=== PATIENT | female | born 2000 | race Caucasian/White ===

== ENCOUNTER 2021-04-19 21:57 | Emergency (ER) | payer SELFPAY ==
[~2021-04-19] VITALS: Ht 170.2 cm; Wt 120.0 kg
--- NOTE | 2021-04-19 22:45 | PHYS DOC ---
General Adult HPI: HPI: " Fuck off..".. " Let... me .. sleep... " Patient is a age year old 21 female celebrating her birthday with intake of 750 ml of [place] and hydrocodone tablets. Patient developed altered mental status and had repeated episodes of vomiting. Patient continued to vomit on arrival here. Vomit has a strong smell of alcohol. Patient minimally responsive will awaken with noxious stimuli and verbalized she wishes to be left alone. Patient, he falls back to sleep when not receiving noxious stimuli.. Patient continued to vomit several times while and emergency room. Patient initially for historian. But later returned patient had no recent travel or. No specific ill contacts. No history of immunosuppression. Note history of polysubstance abuse and alcohol use. Review of Systems: Review of Systems: Constitutional: Denies fever or chills Eyes: Denies change in visual acuity HENT: Denies nasal congestion or sore throat Respiratory: Denies cough or shortness of breath Cardiovascular: Denies chest pain or edema GI: Complains of nausea, vomiting,. Denies bloody stools or diarrhea : Denies dysuria Musculoskeletal: Denies back pain or joint pain Integument: Denies rash Neurologic: Denies headache, focal weakness or sensory changes Endocrine: Denies polyuria or polydipsia Lymphatic: Denies swollen glands Psychiatric: Denies depression or anxiety Family History: Family History: Noncontributory to presentation Current Medications: Current Meds: See nursing for home meds Allergies: Allergies: No known drug allergies Physical Exam: PE: Constitutional: no acute distress, extremely intoxicated in appearance. Does have a strong smell of alcoholic beverage. Patient actively vomiting. HENT: Normocephalic, atraumatic, bilateral external ears normal, oropharynx moist, no oral exudates, nose normal. [] Lip rings. Eyes: PERRLA, EOMI, conjunctiva injected. , no discharge. Glasses Neck: Normal range of motion, no tenderness, supple, no stridor. [] Cardiovascular: Tachycardia heart rate regular rhythm, no murmur [] PMI to the left Lungs & Thorax: Bilateral breath sounds equal at apex with scattered wheezes on auscultation. Some rhonchi and crackles right upper lung. Abdomen: Bowel sounds increased, soft, some epigastric some epigastric tenderness, no masses, no pulsatile masses. Morbidly obese. Skin: Warm, dry, no erythema, no rash. [] Back: No tenderness, no CVA tenderness. [] Extremities: No tenderness, no cyanosis, no clubbing, ROM intact, no edema. , No cording appreciated. No psoas. Neurologic: Alert and oriented X 3, moves all extremities with noxious stimuli. Patient eventually moves all extremities volitionally as she gradually states sobered up in the trauma care area. . Has distal sensory function, no focal deficits noted. [] Psychologic: Affect anxious,, judgement impaired, mood depressed [] Current Patient Data: Labs: Laboratory Tests Test 04/19/21 22:28 POC Urine HCG, Qualitative hcg negative (Negative) EKG: EKG: My interpretation EKG shows a sinus rhythm at 71 bpm. No acute morphology. [] Radiology/Procedures: Radiology/Procedures: [address] [address] IMAGING REPORT Signed PATIENT: JULIO C CLARKE ACCOUNT: [id number] : 2000 LOCATION: ER AGE: 21 SEX: F EXAM STATUS: REG ER ORD. PHYSICIAN: LEATHA JONES MD REASON: Eval. paratracheal , dyspnea, OMNI 350, 100ml PROCEDURE: CT ANGIOGRAPHY CHEST CT angiography chest with contrast PQRS statement: CT scans at this facility use dose reduction including either automated exposure control, iterative reconstructions, and /or weight based radiation dosing via mA and kV modification when appropriate to reduce radiation dose to as low as reasonably achievable. Contrast: 100 mL Isovue-370 intravenous contrast with 3-D MIP reconstructions of the arteries acquired. HISTORY: Abnormal chest x-ray with enlarged right paratracheal mediastinum, dyspnea. FINDINGS: Heart size upper limits of normal. Aorta and esophagus are unremarkable. Ascending aorta diameter 2.9 cm. No adenopathy in the chest. No pulmonary artery emboli. No mass or adenopathy or aneurysm of the mediastinum, the prominence of the right paratracheal mediastinum on prior chest x-ray likely corresponds to tortuosity of the vasculature at this location. Trachea and bronchi are unremarkable. 4 mm solid nodule left lower lobe image 85. Mild discoid atelectasis at the lung bases dependently. No pleural effusions. Bones are unremarkable. IMPRESSION: 1. No acute process. No pulmonary artery emboli. No mass or adenopathy in the chest. See above. 2. 4 mm solid nodule of the left lower lobe. Per Fleischner guidelines if the patient has risk factors for malignancy optional CT follow-up in 12 months could be considered, otherwise no follow-up is necessary. Electronically signed by: Chelsea Charlton MD (04/20/2021 4:05 AM) [facility] DICTATED AND SIGNED BY: CHELSEA CHARLTON MD DATE: 04/20/21 1710 CC: LEATHA JONES MD; PCP,NO ~MTH0 0 [][place] [address] IMAGING REPORT Signed PATIENT: JULIO C CLARKE ACCOUNT: [id number] : 2000 LOCATION: ER AGE: 21 SEX: F EXAM STATUS: REG ER ORD. PHYSICIAN: LEATHA JONES MD REASON: od, eval aspiration PROCEDURE: PORTABLE CHEST 1V AP chest x-ray HISTORY: Aspiration, drug overdose. FINDINGS: Mild cardiomegaly. The right paratracheal stripe is somewhat promine nt. Mediastinal width is normal measuring 1 cm. No pneumothorax, pulmonary opacities or pleural effusions. Bones are unremarkable. IMPRESSION: No pulmonary opacities. Mild cardiomegaly. Prominence of the right paratracheal mediastinum may be due to lipomatosis or vascular tortuosity, although a mass or aneurysm is not excluded. This could be further assessed with CT chest imaging. Electronically signed by: Chelsea Charlton MD (04/19/2021 11:40 PM) [facility] DICTATED AND SIGNED BY: CHELSEA CHARLTON MD DATE: 04/19/21 0822 CC: LEATHA JONES MD; PCP,NO ~MTH0 0 Heart Score: C/O Chest Pain: N/A Risk Factors: Risk Factors: DM, Current or recent (<one month) smoker, HTN, HLP, family history of CAD, obesity. Risk Scores: Score 0 - 3: 2.5% MACE over next 6 weeks - Discharge Home Score 4 - 6: 20.3% MACE over next 6 weeks - Admit for Clinical Observation Score 7 - 10: 72.7% MACE over next 6 weeks - Early Invasive Strategies Course & Med Decision Making: Course & Med Decision Making Pertinent Labs and Imaging studies reviewed. (See chart for details) Pt. now alert and crying to go home. 0430 hrs. Discussed findings of ED evaluation. Caution pt. on further drug an alcohol use. Pt. currently decline referral to drug rehab . program. Impression: 1. Poly substance abuse - ( To night + for ETOH, Narcotics and Marijuana) 2. Tobacco Use 3. ETOH = 344 4. Nausea and Vomiting 5. Pulmonary Nodule- Lt. lower lobe ( to get follow up CT in 12 months. ) 6. Morbid Obesity 7. Mild Leukocytosis 14 8. Mild Elevation Mag. 2.5 9. HTN [] Dragon Disclaimer: Dragon Disclaimer: This electronic medical record was generated, in whole or in part, using a voice recognition dictation system. Departure Departure: Referrals: PCP,NO (PCP) Dragon Disclaimer This chart was dictated in whole or in part using Voice Recognition software in a busy, high-work load, and often noisy Emergency Department environment. It may contain unintended and wholly unrecognized errors or omissions. Dragon Disclaimer This chart was dictated in whole or in part using Voice Recognition software in a busy, high-work load, and often noisy Emergency Department environment. It may contain unintended and wholly unrecognized errors or omissions. LEATHA JONES MD Apr 19, 2021 22:45
[2021-04-19] MEDS ORDERED: IV RINGERS SOLUTION,LACTATED 1,000 ML IV ONE (23:00)
--- NOTE | 2021-04-19 23:15 | EKG ---
[address] [address] Test Date: 2021-04-19 Test Time: 23:02:06 Pat Name: JULIO C CLARKE Department: Room: Gender: F Linen Room Attendant: CHARLES : 2000 Requested By: LEATHA JONES Order Number: [id number] Reading MD: Measurements Intervals [place] Rate: 71 P: 0 ND: 186 QRS: 67 QRSD: 90 T: 28 QT: 398 QTc: 437 Interpretive Statements SINUS RHYTHM OTHERWISE NORMAL ECG RI6.02 No previous ECG available for comparison
[2021-04-19 23:25] LABS: BASO # 0.1 x10^3/uL (0.0-0.2); BASO % 1 % (0-3); EOS # 0.2 x10^3/uL (0.0-0.7); EOS % 1 % (0-3); HEMATOCRIT 41.7 % (36.0-47.0); HEMOGLOBIN 13.9 g/dL (12.0-15.5); LYMPH # 4.7 x10^3/uL (1.0-4.8); LYMPH % 34 % (24-48); MEAN CORPUSCULAR HEMOGLOBIN 30 pg (25-35); MEAN CORPUSCULAR HGB CONC 33 g/dL (31-37); MEAN CORPUSCULAR VOLUME 89 fL (79-100); MONO # 0.7 x10^3/uL (0.0-1.1); MONO % 5 % (0-9); NEUT # 8.3 x10^3uL (1.8-7.7); NEUT % 59 % (31-73); PLATELET COUNT 346 x10^3/uL (140-400); RED CELL DISTRIBUTION WIDTH 14.2 % (11.5-14.5)
[2021-04-19 23:29] LABS: CALCIUM 8.6 mg/dL (8.5-10.1); CREATININE 0.7 mg/dL (0.6-1.0); GFR 106.7; POTASSIUM 4.5 mmol/L (3.5-5.1)
[2021-04-19 23:31] LABS: BARBITURATES NEG (NEG); BENZODIAZEPINES NEG (NEG); CANNABINOIDS POS (NEG); COCAINE NEG (NEG); METHADONE NEG (NEG); OPIATES POS (NEG); PHENCYCLIDINE NEG (NEG)
[2021-04-19 23:37] LABS: BACTERIA,URINE 0 /HPF (0-FEW); BILIRUBIN,URINE NEG (NEG); CLARITY,URINE CLEAR; COLOR,URINE COLORLESS; GLUCOSE,URINE NEG (NEG); NITRITE,URINE NEG (NEG); RBC,URINE 0 /HPF (0-2); SQUAMOUS EPITHELIAL CELL,UR OCC /LPF; UROBILINOGEN,URINE 0.2 mg/dL (0.2 mg/dL); WBC,URINE RARE /HPF (0-4)
[2021-04-19 23:39] LABS: AMPHETAMINE/METHAMPHETAMINE NEG (NEG)
[2021-04-19 23:42] LABS: MAGNESIUM 2.5 mg/dL (1.8-2.4)
--- NOTE | 2021-04-19 23:43 | RAD ---
AP chest x-ray HISTORY: Aspiration, drug overdose. FINDINGS: Mild cardiomegaly. The right paratracheal stripe is somewhat prominent. Mediastinal width i s normal measuring 1 cm. No pneumothorax, pulmonary opacities or pleural effusions. Bones are unremar kable. IMPRESSION: No pulmonary opacities. Mild cardiomegaly. Prominence of the right paratracheal mediastin um may be due to lipomatosis or vascular tortuosity, although a mass or aneurysm is not excluded. Thi s could be further assessed with CT chest imaging. Electronically signed by: Mj Charlton MD (04/19/2021 11:40 PM) [facility]
[2021-04-20] MEDS ORDERED: IV RINGERS SOLUTION,LACTATED 1,000 ML IV SCH
[2021-04-20] MEDS ORDERED: CONTRAST GIVEN. MC PRN (03:15)
[2021-04-20] MEDS ORDERED: IOHEXOL 350 MG/ML 100 ML VIAL. IV ONE (03:30)
--- NOTE | 2021-04-20 04:07 | RAD ---
CT angiography chest with contrast PQRS statement: CT scans at this facility use dose reduction including either automated exposure cont rol, iterative reconstructions, and /or weight based radiation dosing via mA and kV modification when appropriate to reduce radiation dose to as low as reasonably achievable. Contrast: 100 mL Isovue-370 intravenous contrast with 3-D MIP reconstructions of the arteries acquire d. HISTORY: Abnormal chest x-ray with enlarged right paratracheal mediastinum, dyspnea. FINDINGS: Heart size upper limits of normal. Aorta and esophagus are unremarkable. Ascending aorta di ameter 2.9 cm. No adenopathy in the chest. No pulmonary artery emboli. No mass or adenopathy or aneur ysm of the mediastinum, the prominence of the right paratracheal mediastinum on prior chest x-ray lik cassie corresponds to tortuosity of the vasculature at this location. Trachea and bronchi are unremarkab le. 4 mm solid nodule left lower lobe image 85. Mild discoid atelectasis at the lung bases dependentl y. No pleural effusions. Bones are unremarkable. IMPRESSION: 1. No acute process. No pulmonary artery emboli. No mass or adenopathy in the chest. See above. 2. 4 mm solid nodule of the left lower lobe. Per Fleischner guidelines if the patient has risk factor s for malignancy optional CT follow-up in 12 months could be considered, otherwise no follow-up is ne cessary. Electronically signed by: Mj Charlton MD (04/20/2021 4:05 AM) [facility]
[2021-04-20 04:45] VITALS: BP 146/91
== END 2021-04-20 04:45 | disposition home or self-care (01) ==
LOC: ER 21:57
DX: R41.82 Altered mental status, unspecified (principal); R11.2 Nausea with vomiting, unspecified; R91.1 Solitary pulmonary nodule; E66.01 Morbid (severe) obesity due to excess calories; D72.829 Elevated white blood cell count, unspecified; I10 Essential (primary) hypertension; Z68.41 Body mass index [BMI] 40.0-44.9, adult
CPT/HCPCS: 71045; 71275; 80048; 80307; 81001; 81025; 82550; 83735; 83880; 84484; 85025; 93005; 96360; 96361; 99285; G0480; J7120; Q9967